=== PATIENT | male | born 1960 | race Caucasian/White ===

== ENCOUNTER 2024-04-10 17:07 | Emergency (ER) | payer OTHER ==
--- NOTE | 2024-04-10 17:56 | RAD REPORT ---
EXAM DESCRIPTION: CT - Head C Spine Cap Wo Con - 04/10/2024 5:35 pm CLINICAL HISTORY: fall, intoxicated COMPARISON: No comparisons TECHNIQUE: CT head without contrast. CT cervical spine without contrast with coronal and sagittal reformatted images. CT chest, abdomen and pelvis without contrast with coronal and sagittal reformatted images of the spi ne. All CT scans are performed using dose optimization technique as appropriate and may include automated exposure control or mA/KV adjustment according to patient size. FINDINGS: CT HEAD WITHOUT CONTRAST: No intracranial hemorrhage, hydrocephalus or extra-axial fluid collection. No areas of brain edema o r midline shift. The paranasal sinuses and mastoids are clear. The calvarium is intact. CT CERVICAL SPINE WITHOUT CONTRAST: No fracture or subluxation. The prevertebral soft tissues are normal in thickness.Multilevel degener ative changes are present in the spine. Retrolisthesis of C5 on C6 is likely related underlying facet degenerative changes. Severe neural foraminal narrowing is present bilaterally at this level. Mild c entral spinal stenosis is present. CT CHEST, ABDOMEN, PELVIS WITHOUT CONTRAST: NOTE: Lack of contrast is a significant limitation in the assessment of trauma related findings. Spec ifically, solid organ, vascular and bowel evaluation is significantly limited. The lungs are clear.No pneumothorax or pericardial/pleural fluid. Elevated left hemidiaphragm. No evidence of intra-abdominal visceral injury, free fluid or free air is seen within the above detai led limitations. Hepatic steatosis. Diverticulosis without diverticulitis. Atherosclerosis. No concerning pelvic findings. Remote appearing T7 compression fracture with up to 90% loss of height. . Mild compression deformity present at T12 which is age indeterminate. L2 compression fracture with approximately 20% loss of hei ght is favored chronic. 11 mm sclerotic focus in the right iliac bone is nonspecific. This could repr esent a bone island. No other suspicious lesions are identified. Subacute versus chronic left seventh rib fracture. IMPRESSION: 1. No acute intracranial abnormality. 2. No acute fracture or traumatic malalignment of the cervical spine. 3. Thoracic and lumbar compression fractures. T12 is age indeterminate and has less than 20% loss of vertebral body height. Other compression fractures are favored chronic. MRI could better establish ac uity if clinically indicated. 4. Hepatic steatosis
[2024-04-10 18:19] LABS: Absolute Lymphocytes (CBC) 0.9 K/uL (0.7-4.9); Absolute Monocytes 0.5 K/uL (0.1-1.3); Absolute Neutrophil 2.5 K/uL (1.8-8.0); Basophils % 1.1 % (0-1.3); Eosinophils % 0.5 % (0-4.4); Hematocrit 42.6 % (39.6-49.0); Hemoglobin 14.8 g/dL (13.6-17.9); Lymphocytes % 22.7 % (15.3-44.8); MCH 38.8 pg (27.0-35.0); MCHC 34.7 g/dL (32.0-36.0); MPV 8.8 fL (7.6-11.3); Monocytes % 13.4 % (3.3-12.3); Neutrophils % 62.3 % (41.7-73.7); Nucleated Red Blood Cells % 0.1 % (0-0); Platelets 77 thou/uL (152-406); Red Cell Distribution Width 16.3 % (12.1-15.2)
[2024-04-10 18:23] LABS: PT Prothrombin Time 11.9 SECONDS (9.4-12.5); PTT, Activated Partial Thromb 31.7 SECONDS (24.3-36.9); Protime INR 1.08
[2024-04-10 18:26] LABS: Anion Gap 14.2 mEq/L (5.0-15.0); Potassium 3.2 mEq/L (3.5-5.1)
[2024-04-10] MEDS ORDERED: dexAMETHasone 10 MG/ML VIAL ONE (18:34)
[2024-04-10] MEDS ORDERED: KETOROLAC 30 MG/ML INJ ONE (18:34)
[2024-04-10] MEDS ORDERED: NA CHLORIDE 0.9% 1,000 ML ONE (18:34)
--- NOTE | 2024-04-10 19:33 | ER ---
Nurse's Notes [facility] Name: Mio Mena Age: 63 yrs Sex: Male : 1960 Arrival Date: 04/10/2024 Time: 17:07 Bed 17 Private MD: Diagnosis: Repeated falls;Alcohol use, unspecified with intoxication, uncomplicated Presentation: 04/10 17:00 Chief complaint: EMS states: petient fell trying to get into his 18 arteaga, possible kj2 intoxication. Complains of pain starting from his neck down which he has had since September. 17:00 Coronavirus screen: At this time, the client does not indicate any symptoms associated kj2 with coronavirus-19. Ebola Screen: Patient denies travel to an Ebola-affected area in the 21 days before illness onset. Initial Sepsis Screen: Does the patient meet any 2 criteria? HR > 90 bpm. No. Patient's initial sepsis screen is negative. Does the patient have a suspected source of infection? No. Patient's initial sepsis screen is negative. Risk Assessment: Do you want to hurt yourself or someone else? Patient reports no desire to harm self or others. Onset of symptoms was April 10, 2024. 17:00 Method Of Arrival: EMS: [facility] kj2 17:00 Acuity: SENAIT 3 kj2 Historical: - Allergies: 17:24 No Known Allergies; kj2 - PMHx: 17:24 Hypertensive disorder; Alcohol dependence; kj2 - Immunization history:: Adult Immunizations unknown. - Infectious Disease History:: Denies. - Social history:: Smoking status: unknown. - Family history:: not pertinent. - Hospitalizations: : No recent hospitalization is reported. Screenin:10 [facility] ED Fall Risk Assessment (Adult) History of falling in the last 3 months, kj2 including since admission Yes- single mechanical fall (1 pt) Confusion or Disorientation No (0 pts) Intoxicated or Sedated Yes (3 pts) Impaired Gait Yes (1 pt) Mobility Assist Device Used No (0 pt) Altered Elimination Yes (1 pt) Score/Fall Risk Level 3 or more points = High Risk Oriented to surroundings, Maintained a safe environment, Educated pt \T\ family on fall prevention, incl call for assistance when getting out of bed, Hourly rounding (assess needs \T\ fall precautionary measures) done, Utilized family, sitter, or virtual slab puller as indicated. 19:11 Abuse screen: Denies threats or abuse. Denies injuries from another. Nutritional kj2 screening: No deficits noted. Tuberculosis screening: No symptoms or risk factors identified. Assessment: 18:06 General: Appears in no apparent distress. Behavior is cooperative, Smells of alcohol. kj2 Pain: Complains of pain in starting from neck down to back Pain currently is 8 out of 10 on a pain scale. Quality of pain is described as aching. Neuro: Level of Consciousness is awake, alert, obeys commands, Oriented to person, place. Cardiovascular: Capillary refill Patient's skin is warm and dry. Respiratory: Airway is patent Respiratory effort is even, unlabored. GI: No deficits noted. : Urine is. 19:19 Reassessment: Patient appears in no apparent distress at this time. Patient and/or tm6 family updated on plan of care and expected duration. Pain level reassessed. Patient is alert, oriented x 3, equal unlabored respirations, skin warm/dry/pink. 20:06 Reassessment: Patient appears in no apparent distress at this time. Patient and/or tm6 family updated on plan of care and expected duration. Pain level reassessed. Patient is alert, oriented x 3, equal unlabored respirations, skin warm/dry/pink. Vital Signs: 17:00 BP 119 / 92; Pulse 102; Resp 20; Temp 98.2(O); Pulse Ox 94% on R/A; Pain 8/10; kj2 18:14 BP 119 / 92; Pulse 102; Resp 20; Pulse Ox 94% on R/A; kj2 19:19 BP 134 / 92; Pulse 83; Pulse Ox 97% on R/A; Pain 0/10; tm6 20:09 BP 140 / 98; Pulse 88; Resp 19; Temp 97.5; Pulse Ox 95% on R/A; MAP 109 mmHg; Pain 0/10;tm6 17:00 Pain Scale: Adult kj2 19:19 Pain Scale: Adult tm6 20:09 Pain Scale: Adult tm6 ED Course: 17:09 Patient arrived in ED. eb 17:09 Mehran Barrera MD is Attending Physician. rn 17:19 Nina Franks RN is Primary Nurse. kj2 17:24 Triage completed. kj2 17:25 Arm band placed on. kj2 17:37 CT Traumagram (Head C Spine CAP wo con) In Process Unspecified. EDMS 17:40 Patient has correct armband on for positive identification. Side rails up X 1. Adult w/ kj2 patient. 17:40 Provided Education on: call light, fall precautions. kj2 18:15 Inserted saline lock: 20 gauge in right antecubital area, using aseptic technique. kj2 Blood collected. 19:09 Report given to ONI Lam. kj2 20:06 No provider procedures requiring assistance completed. IV discontinued, intact, tm6 bleeding controlled, No redness/swelling at site. Pressure dressing applied. Administered Medications: 18:44 Drug: NS 0.9% IV 1000 ml IV at 1000 ml once Route: IV; Rate: 1000 ml; Site: right kj2 antecubital; 18:45 Drug: Ketorolac IVP 15 mg IVP once Route: IVP; Site: right antecubital; kj2 18:45 Drug: Decadron - Dexamethasone IVP 10 mg IVP once Route: IVP; Site: right antecubital; kj2 Medication: 20:06 VIS not applicable for this client. tm6 Outcome: 19:33 Discharge ordered by . rn 20:06 Discharged to home via wheelchair, with family, tm6 20:06 Condition: stable 20:06 Discharge instructions given to patient, family, Instructed on discharge instructions, follow up and referral plans. Demonstrated understanding of instructions, follow-up care, 20:10 Patient left the ED. tm6 Signatures: Dispatcher [employer] EDMS Mehran Barrera MD MD rn Botello, Elizabeth eb Masterson, Tawney, RN RN tm6 Nina Franks RN RN kj2
--- NOTE | 2024-04-10 19:33 | EDPHYS ---
Physician Documentation [facility] Name: Mio Mena Age: 63 yrs Sex: Male : 1960 Arrival Date: 04/10/2024 Time: 17:07 Bed 17 Private MD: ED Physician Mehran Barrera HPI: 04/10 18:26 This 63 yrs old Male presents to ER via EMS with complaints of Fall Injury. rn 18:26 Details of fall: The patient fell from a height, Getting into the vehicle. Onset: The rn symptoms/episode began/occurred just prior to arrival. Associated injuries: The patient sustained injury to the low back. Severity of symptoms: At their worst the symptoms were mild, in the emergency department the symptoms are unchanged. The patient has experienced similar episodes in the past. Patient reports fell trying to get into his vehicle today. Landed on his back. Denies any focal pain at this time but states thinks he aggravated his sciatic nerve pain. States has multiple falls in the past and has had low back pain with radiation down both legs. No weakness or numbness. Patient was noted to be intoxicated by EMS. Patient claims to be here for us to fix his sciatic nerve definitively.. Historical: - Allergies: 17:24 No Known Allergies; kj2 - PMHx: 17:24 Hypertensive disorder; Alcohol dependence; kj2 - Immunization history:: Adult Immunizations unknown. - Infectious Disease History:: Denies. - Social history:: Smoking status: unknown. - Family history:: not pertinent. - Hospitalizations: : No recent hospitalization is reported. ROS: 18:26 Constitutional: Negative for fever, chills, and weight loss, Neck: Negative for injury, rn pain, and swelling, Cardiovascular: Negative for chest pain, palpitations, and edema, Respiratory: Negative for shortness of breath, cough, wheezing, and pleuritic chest pain, Abdomen/GI: Negative for abdominal pain, nausea, vomiting, diarrhea, and constipation, Back: Positive for chronic low back pain MS/Extremity: Negative for injury and deformity, Neuro: Negative for headache, weakness, numbness, tingling, and seizure, Exam: 18:26 Constitutional: This is a well developed, well nourished patient who is awake, alert, rn and in no acute distress. Slurring his words, appears intoxicated with alcohol Head/Face: Normocephalic, atraumatic. Eyes: Pupils equal round and reactive to light, extra-ocular motions intact. ENT: No oral trauma noted, dry mucous membranes Chest/axilla: Normal chest wall appearance and motion. Nontender with no deformity. No lesions are appreciated. Cardiovascular: Tachycardic, regular. Respiratory: Speaking full sentences, unlabored Abdomen/GI: Soft, nontender Back: No spinal tenderness. No costovertebral tenderness. Full range of motion. MS/ Extremity: Pulses equal, no cyanosis. Neurovascular intact. Full, normal range of motion. Equal circumference. Neuro: Awake and alert, GCS 15, oriented to person, place, time, and situation Vital Signs: 17:00 BP 119 / 92; Pulse 102; Resp 20; Temp 98.2(O); Pulse Ox 94% on R/A; Pain 8/10; kj2 18:14 BP 119 / 92; Pulse 102; Resp 20; Pulse Ox 94% on R/A; kj2 19:19 BP 134 / 92; Pulse 83; Pulse Ox 97% on R/A; Pain 0/10; tm6 20:09 BP 140 / 98; Pulse 88; Resp 19; Temp 97.5; Pulse Ox 95% on R/A; MAP 109 mmHg; Pain 0/10;tm6 17:00 Pain Scale: Adult kj2 19:19 Pain Scale: Adult tm6 20:09 Pain Scale: Adult tm6 MDM: 17:09 Patient medically screened. rn 19:30 Differential diagnosis: closed head injury, contusion, fracture, sprain, strain, rn Alcohol intoxication. Data reviewed: vital signs, nurses notes, lab test result(s), radiologic studies, CT scan, and as a result, I will discharge patient. Counseling: I had a detailed discussion with the patient and/or guardian regarding the historical points, exam findings, and any diagnostic results supporting the discharge/admit diagnosis, radiology results, the need for outpatient follow up, to return to the emergency department if symptoms worsen or persist or if there are any questions or concerns that arise at home. Special discussion: I discussed with the patient/guardian in detail that at this point there is no indication for admission to the hospital. It is understood, however, that if the symptoms persist or worsen the patient needs to return immediately for re-evaluation. ED course: No acute traumatic findings on imaging. Patient with alcohol level in 300s. 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 04/10 17:10 Order name: CBC with Diff rn 04/10 17:10 Order name: Basic Metabolic Panel; Complete Time: 18:51 rn 04/10 17:10 Order name: Protime (+inr); Complete Time: 18:51 rn 04/10 17:10 Order name: Ptt, Activated; Complete Time: 18:51 rn 04/10 17:10 Order name: ETOH Level; Complete Time: 18:51 rn 04/10 19:58 Order name: CBC Smear Scan EDMS 04/10 17:10 Order name: CT Traumagram (Head C Spine CAP wo con); Complete Time: 17:58 rn 04/10 17:10 Order name: IV Start; Complete Time: 18:47 rn Administered Medications: 18:44 Drug: NS 0.9% IV 1000 ml IV at 1000 ml once Route: IV; Rate: 1000 ml; Site: right kj2 antecubital; 18:45 Drug: Ketorolac IVP 15 mg IVP once Route: IVP; Site: right antecubital; kj2 18:45 Drug: Decadron - Dexamethasone IVP 10 mg IVP once Route: IVP; Site: right antecubital; kj2 Disposition Summary: 04/10/24 19:33 Discharge Ordered Notes: Location: Home rn Problem: new rn Symptoms: have improved rn Condition: Stable rn Diagnosis - Repeated falls rn - Alcohol use, unspecified with intoxication, uncomplicated rn Followup: rn - With: Private Physician - When: As needed - Reason: Recheck today's complaints, Re-evaluation by your physician Discharge Instructions: - Discharge Summary Sheet rn - Alcohol Intoxication rn - Chronic Back Pain rn - Alcohol Abuse and Nutrition rn - Managing Chronic Back Pain rn Forms: - Medication Reconciliation Form rn - Antibiotic commercial attorney - Prescription Opioid Use rn - Patient Portal Instructions rn - Leadership Thank You Letter rn Signatures: Dispatcher [employer] Mehran Ibrahim MD MD rn Jordan, Krystal, RN RN kj2
[2024-04-10 19:57] LABS: Blood Morphology Comment NOTED (NOT SEEN); Platelet Estimate DECR; White Blood Cell Scan OK (OK)
[2024-04-10 19:58] LABS: Anisocytosis 1+; Macrocytosis 2+
[2024-04-11 01:33] VITALS: BP 140/98; TEMP 97.5; O2SAT 95
== END 2024-04-10 20:10 | disposition home or self-care (01) ==
LOC: ER 17:07
DX: F10.20 Alcohol dependence, uncomplicated (principal); R29.6 Repeated falls
CPT/HCPCS: 85025; 80048; 36415; 85610; 85730; 70450; 71250; 72125; 96375; 96374; 99284; 82077; J1100; J7030